=== PATIENT | female | born 1955 | race Caucasian/White ===

== ENCOUNTER 2016-07-10 06:44 | Day surgery (SDC) | payer MEDICARE, OTHER ==
[2016-07-06 11:37] LABS: HEMATOCRIT 42.5 % (36.0-48.0); HEMOGLOBIN 14.3 g/dL (12.0-16.0)
[2016-07-06 11:43] LABS: CALCIUM, SERUM 8.8 MG/DL (8.5-10.4); CHLORIDE, SERUM 105 MMOL/L (96-112); CO2 (CARBON DIOXIDE) 28 MMOL/L (24-34); CREATININE 0.62 MG/DL (0.55-1.02); GFR AFRICAN AMERICAN 114 ML/MIN (>=60); GFR NON AFRICAN AMERICAN 99 ML/MIN (>=60); GLUCOSE, SERUM 107 MG/DL (60-99); POTASSIUM, SERUM 3.7 MMOL/L (3.5-5.3); SODIUM, SERUM 142 MMOL/L (135-148)
[2016-07-06 11:45] LABS: BUN (BLOOD UREA NITROGEN) 21 MG/DL (6-23)
[2016-07-06 11:56] LABS: ASCORBIC ACID (UR NOT ORDER) 40 (NEG); BILIRUBIN, URINE NEGATIVE (NEG); KETONE, URINE NEGATIVE (NEG); LEUKOCYTE ESTERASE(NOT OR LARGE (NEG); WBC (NOT ORDERED) (RFLEX) > 182 (0-5)
--- NOTE | ~2016-07-10 | OP ---
Record Of Operation [facility] [address] [place]. [address] NAME: RYLAN OROZCO : 59 STATUS : [facility]#: [id number] AGE: 61 ADM/REG DATE : 07/10/16 MR#: [id number] REPORT SERV DATE: 07/10/16 DICTATED BY: ATIF HARRIS JR. DATE: 07/10/16 REPORT STATUS : Draft TRANSCRIBED BY: MODL DATE: 07/10/16 DATE OF PROCEDURE: 07/10/2016 SURGEON: Atif Harris M.D. PREOPERATIVE DIAGNOSIS: Right renal stone. POSTOPERATIVE DIAGNOSIS: Right renal stone. PROCEDURE PERFORMED: Cystoscopy, removal of right double-J stent, right ureteroscopy with laser ablation of right renal stone, and removal of fragments. COMPLICATIONS: None. CONSULTATIONS: None. ANESTHESIA: General with an endotracheal tube. SPECIMENS: Right renal stone fragments. DRAINS: None. ESTIMATED BLOOD LOSS: None. INDICATION: Mrs. Orozco is a 61-year-old female who is status post double-J stenting and treatment for sepsis of urinary origin secondary to UPJ stone. She had lithotripsy post treatment for her sepsis. The stone was not visible by plain film; however, she did not catch any pieces in her strainer and there was some concern that she did not pass the stone fragments. She is mentally handicapped and is unable to communicate on her own and I recommended to her caregivers that we perform ureteroscopy to make sure she had no residual stone fragments to preclude her from getting septic again. She comes today for that procedure. PROCEDURE IN DETAIL: After the patient was identified and proper informed consent was obtained, she was taken to the operating room. General anesthesia was performed without complication using an endotracheal tube. She was then prepped and draped in the normal sterile fashion in the lithotomy position. 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 I was able to visualize the double-J stent and removed using a grasping forceps. I then performed retrograde pyelogram which revealed normal course and caliber to the ureter with no residual dilatation of the renal pelvis. The guidewire was advanced through the open- ended catheter up to the renal pelvis and flexible ureteroscopy was performed without having to dilate the ureter or manipulate the ureter. A stone was visualized in the mid pole calyx approximately 5 mm in size. A 200 micron Holmium laser fiber was placed through the endoscope up to the level of the stone and the stone was fragmented into multiple small pieces. Several of the small pieces were removed using a NGage basket and sent for chemical Record Of Operation [address] [id number] NAME: RYLAN OROZCO : 59 STATUS : [facility] PAT#: [id number] AGE: 61 ADM/REG DATE : 07/10/16 MR#: [id number] REPORT SERV DATE: 07/10/16 DICTATED BY: ATIF HARRIS JR. DATE: 07/10/16 REPORT STATUS : Draft TRANSCRIBED BY: OSBALOD DATE: 07/10/16 analysis. I then removed the ureteroscope. I did not place another double-J stent as she has had this stent for approximately 3 to 4 weeks. Her ureter was widely patent and I did not have to dilate it. The bladder was drained. The patient was awakened in the operating room and transferred to the postanesthesia care unit in stable condition. I will see her back in approximately six months with a KUB to make sure that she does not make any new stones. DARIEL/OSBALDO Atif Harris Jr., M.D. / [id number] CC: Beatrice Abebe Jr.
[~2016-07-10 06:44] MED LIST: AMB10 PO; BISR PR; DARVN100 PO; DESITIN TOP; DESITIN40 % TOP; DILACOR XR PO; ENSURE; FLINTSTONE3 PO; FLONASE NAS; FORTICAL200 MG/ACT NAS; GAS RELIEF OR; IBU400 PO; KEPPRA500 PO; LOP25 PO; LOP50 PO; LOTRIMIN AF12 EX; MAX25 PO; MIRALAX POWDER1 PKT PO; MIRALAXPKT PO; MUCINEX600 MG PO; MYLUD PO; NASONEX NAS; NEO-OINT15; NEXIUM40 PO; OS500+D PO; PRILO PO; PRIN20 PO; T PO; TOPXL50 PO; ULTRAM50 PO; ZOCOR40 PO; [UNRECOGNIZED DRUG - OTHER] OR
[2016-07-16 23:11] LABS: SOURCE OF STONE Kidney (()); STONE COMPOSITION TWO DNR (())
== END 2016-07-10 11:02 | disposition home or self-care (01) ==
LOC: SDC 06:44
PROVIDERS: Urology
PROC: 0TF38ZZ Fragmentation in Right Kidney Pelvis, Via Natural or Artificial Opening Endoscopic (ICD-10-PCS; principal; 2016-07-10 07:45)
DX: N20.0 Calculus of kidney (principal); I10 Essential (primary) hypertension; E78.00 Pure hypercholesterolemia, unspecified; K21.9 Gastro-esophageal reflux disease without esophagitis; J45.909 Unspecified asthma, uncomplicated; Z86.711 Personal history of pulmonary embolism; Z88.8 Allergy status to other drugs, medicaments and biological substances
CPT/HCPCS: 74420; 80048; 81001; 82365; 85014; 85018; 87077; 87086; 87186; 88300; 93005; C1758; J1956; J2250; J2405; J3010; Q9967